=== PATIENT | male | born 1975 | race Caucasian/White ===

== ENCOUNTER 2018-12-16 02:06 | Emergency (ER) | payer OTHER ==
[~2018-12-16] VITALS: Ht 180.3 cm; Wt 99.8 kg
[2018-12-16 02:40] VITALS: BP_SYST 146
[2018-12-16 03:38] LABS: HEMATOCRIT 43.5 % (36-54); HEMOGLOBIN 14.3 g/dL (14.0-18.0); MEAN CORPUSCULAR HEMOGLOBIN 27 pg (27-31); MEAN CORPUSCULAR HGB CONC 33 % (32-36); MEAN CORPUSCULAR VOLUME 83 fL (79.0-98.0); PLATELET COUNT (AUTO) 221 K/uL (130-430); RED BLOOD CELL COUNT(AUTO) 5.23 MIL/uL (4.2-6.2); RED CELL DISTRIBUTION WIDTH 12.8 % (9.0-15.0)
[2018-12-16 03:49] LABS: CALCIUM 8.7 mg/dL (8.4-11.0); CREATININE 0.98 mg/dL (0.55-1.30); POTASSIUM 3.2 mmol/L (3.5-5.1)
[2018-12-16 03:54] LABS: ALBUMIN 3.4 g/dL (3.4-4.8); TOTAL BILIRUBIN 0.3 mg/dL (0.0-1.0)
[2018-12-16 04:11] LABS: BASOPHILS % (MANUAL) 0 % (0-2); EOSINOPHILS % (MANUAL) 1 % (0-7); LYMPHOCYTES % (MANUAL) 24 % (20-46); MONOCYTES % (MANUAL) 8 % (0-11)
[2018-12-16] MEDS ORDERED: POTASSIUM CHLORIDE 20 MEQ TAB.PRT.SR PO ONE (07:30)
[2018-12-16 07:41] VITALS: BP_SYST 132
== END 2018-12-16 07:41 | disposition home or self-care (01) ==
LOC: SED 02:06
DX: R00.2 Palpitations (principal); E87.6 Hypokalemia; E11.9 Type 2 diabetes mellitus without complications; I10 Essential (primary) hypertension
CPT/HCPCS: 36415; 80053; 82550-TC; 83880; 84484; 85007; 85027; 93005; 99284

== ENCOUNTER 2019-10-07 09:10 | Emergency (ER) | payer OTHER ==
[~2019-10-07] VITALS: Ht 180.3 cm; Wt 99.8 kg
[2019-10-07 09:10] VITALS: BP_SYST 137
--- NOTE | 2019-10-07 09:25 | NUR ---
Placed in room [02] . Placed on secured entrance monitor, blood pressure machine and pulse oximeter. To gown for exam. Side rails up.
--- NOTE | 2019-10-07 09:35 | NUR ---
Patient presented to ER C/O palpatations. Patient A&Ox4, afebrile, ambulatory to ER, skin pink and warm, denies N/V/D, denies pain. Patient states he is experiencing palpatations, and very uncomfortable. Patient placed on school lunch monitor and pulse-ox, EKG completed on arrival.
--- NOTE | 2019-10-07 09:36 | NUR ---
ER Dr. Shields at bedside examining patient.
[2019-10-07] MEDS ORDERED: LISI40TA4 PO (09:53)
[2019-10-07] MEDS ORDERED: BACL10TA PO ×2 (09:53)
[2019-10-07] MEDS ORDERED: GABA-531 PO (09:53)
[2019-10-07] MEDS ORDERED: DOCU-144 PO (09:53)
[2019-10-07] MEDS ORDERED: SENN-278 PO (09:53)
[2019-10-07] MEDS ORDERED: FAMO20TA8 PO (09:53)
[2019-10-07] MEDS ORDERED: TAMS-11 PO (09:53)
--- NOTE | 2019-10-07 10:23 | NUR ---
DR. ATKINSON, RESCUE [facility] DOC, CALLED BACK REGARDING PT STATUS OF TRANSFER/ADMISSION.
[2019-10-07] MEDS ORDERED: HYT1 PO (10:24)
[2019-10-07] MEDS ORDERED: AZIT500T3 PO (10:24)
[2019-10-07] MEDS ORDERED: LISI-600 PO (10:24)
[2019-10-07] MEDS ORDERED: METF-510 PO (10:24)
[2019-10-07] MEDS ORDERED: LIP10 PO (10:24)
[2019-10-07] MEDS ORDERED: ATEN50TA PO (10:24)
--- NOTE | 2019-10-07 10:24 | NUR ---
Medication reconciliation completed with information provided by Patient. Any prior medication reconciliation on file was reviewed and corrected.
[2019-10-07 10:40] VITALS: BP_SYST 136
--- NOTE | 2019-10-07 10:40 | NUR ---
Patient given written and verbal discharge instructions and verbalizes understanding. ER MD discussed with patient the results and treatment provided. Patient in stable condition. ID arm band removed. No Rx given. Patient educated on pain management and to follow up with PMD. Pain Scale 0/10. Opportunity for questions provided and answered.
== END 2019-10-07 10:40 | disposition home or self-care (01) ==
LOC: SED 09:10
DX: I49.3 Ventricular premature depolarization (principal); I10 Essential (primary) hypertension; E11.9 Type 2 diabetes mellitus without complications; Z79.84 Long term (current) use of oral hypoglycemic drugs; Z79.899 Other long term (current) drug therapy
CPT/HCPCS: 82962; 93005; 99283